=== PATIENT | male | born 1995 | race Caucasian/White ===

== ENCOUNTER 2025-07-31 17:46 | Emergency (ER) | payer OTHER ==
[2025-07-31 18:00] VITALS: BP 130/82; PULSE 88; RESP 20; TEMP 97.9; BMI 24.3
[2025-07-31 21:44] LABS: HCV DIAGNOSTIC IN-HOUSE W/RFLX NON-REACTIVE (NONREACTIVE)
[2025-07-31 22:51] LABS: HIV INTERPRETATION NEGATIVE (NEGATIVE)
== END 2025-07-31 19:06 | disposition home or self-care (01) ==
LOC: FER 17:46
DX: F13.10 Sedative, hypnotic or anxiolytic abuse, uncomplicated (principal); R20.0 Anesthesia of skin; R51.9 Headache, unspecified; R42 Dizziness and giddiness; R25.1 Tremor, unspecified; R20.2 Paresthesia of skin; R41.89 Other symptoms and signs involving cognitive functions and awareness; R41.0 Disorientation, unspecified
CPT/HCPCS: 36415; 86803; 87389; 99283-25